=== PATIENT | male | born 1960 | race Caucasian/White ===

== ENCOUNTER 2017-05-16 13:02 | Emergency (ER) | payer OTHER ==
--- NOTE | 2017-05-16 14:58 | RAD ---
INDICATION: Productive cough and shortness of breath for 2 weeks. Recent treatment for leukemia. COMPARISON: No relevant prior exams available on the [facility] PACS for comparison. TECHNIQUE: Dual energy PA and routine lateral views of the chest were obtained. REPORT: Bilateral nipple shadows noted on the PA view with corresponding finding on the lateral view without concern. No focal pulmonary lesion, compelling alveolar consolidation, pleural effusion, pneumothorax. The heart, pulmonary vasculature, and mediastinal contours are unremarkable. No suspicious osseous lesions evident. IMPRESSION: No evidence for pneumonia. No evidence for acute intrathoracic disease.
[2017-05-16 15:36] VITALS: BP 135/85
--- NOTE | 2017-05-16 15:39 | ED ---
Throat Pain/Nasal Congestion - HPI Summary HPI Summary: 56 yr old male with complaint of coughing for over a week, sinus pressure in the maxillary sinus area, post nasal drip, mild vertigo at times associated with sinus pressure and position change. He was sent by his oncologist in [place] for chest xray and influenza. The patient denies headache, neck stiffness. Denies change in vision, speech, hearing, swallowing, focal weakness , numbness, gait. The patient has not had fever. The patient has a history of leukemia and is in remission. He has not had radiation or chemo for over 6 months. - History of Current Complaint Chief Complaint: UCRespiratory Time Seen by Provider: 05/16/17 14:14 - Allergies/Home Medications Allergies/Adverse Reactions: Allergies Allergy/AdvReac Type Severity Reaction Status Date / Time Penicillins Allergy Rash Verified 05/16/17 13:53 Home Medications: Home Medications Acyclovir* [Zovirax 200 MG CAP*] 200 mg PO BID 05/16/17 [History Confirmed 05/16] Fluconazole [Fluconazole 200 mg tab] 200 mg PO BID 05/16/17 [History Confirmed 05/16/17] Gabapentin CAP(*) [Neurontin 300 CAP(*)] 300 mg PO TID 05/16/17 [History Confirmed 05/16/17] Insulin Aspart [Novolog Flexpen] 10 unit SC TID 05/16/17 [History Confirmed ] Metoprolol Tartrate TAB* [Lopressor TAB*] 200 mg PO DAILY 05/16/17 [History Confirmed 05/16/17] Ursodiol CAP* [Actigall CAP 300 MG*] 300 mg PO BID 05/16/17 [History Confirmed 05/16/17] amLODIPine TAB* [Norvasc 5 mg TAB*] 5 mg PO DAILY 05/16/17 [History Confirmed ] hydrALAZINE TAB* [Apresoline TAB*] 100 mg PO TID 05/16/17 [History Confirmed ] PMH/Surg Hx/FS Hx/Imm Hx Endocrine/Hematology History: Reports: Hx Diabetes - Cancer History Cancer Type, Location and Year: leukemia - Surgical History Surgery Procedure, Year, and Place: resection large intestine. gallbladder removal Infectious Disease History: No Infectious Disease History: Denies: Traveled Outside the [place] in Last 30 Days - Family History Known Family History: Positive: None - Social History Alcohol Use: None Substance Use Type: Reports: None Smoking Status (MU): Never Smoked Tobacco Review of Systems Negative: Fever, Chills Negative: Photophobia, Blurred Vision, Diplopia Positive: Sore Throat, Nasal Discharge, Other - sinus pressure Negative: Palpitations, Chest Pain Positive: Cough Negative: Vomiting, Diarrhea Negative: Headache, Weakness, Paresthesia, Numbness, Syncope, Slurred Speech All Other Systems Reviewed And Are Negative: Yes Physical Exam Triage Information Reviewed: Yes Vital Signs On Initial Exam: Initial Vitals Temp Pulse Resp BP Pulse Ox 98.7 F 71 18 129/77 98 05/16/17 13:48 05/16/17 13:48 05/16/17 13:48 05/16/17 13:48 05/16/17 13:48 Vital Signs Reviewed: Yes Appearance: Positive: Well-Appearing, No Pain Distress Skin: Positive: Warm, Skin Color Reflects Adequate Perfusion Head/Face: Positive: Normal Head/Face Inspection Eyes: Positive: EOMI, MALORIE ENT: Positive: Pharynx normal, Nasal congestion, TMs normal, Sinus tenderness - bilateral maxillary sinus Neck: Positive: Supple, Nontender Respiratory/Lung Sounds: Positive: Clear to Auscultation, Breath Sounds Present Cardiovascular: Positive: RRR. Negative: Murmur Abdomen Description: Positive: Nontender Musculoskeletal: Positive: Strength/ROM Intact Neurological: Positive: Sensory/Motor Intact, Alert, Oriented to Person Place, Time, CN Intact II-III, Normal Gait, Speech Normal - Whitney Coma Scale Best Eye Response: 4 - Spontaneous Best Motor Response: 6 - Obeys Commands Best Verbal Response: 5 - Oriented Diagnostics - Vital Signs Vital Signs Temp Pulse Resp BP Pulse Ox 05/16/17 13:48 98.7 F 71 18 129/77 98 - Laboratory Lab Results: Lab Results 05/16/17 05/16/17 Range/Units 14:16 14:46 POC Glucose (mg/dL) 128 H (70-100) mg/dL Influenza A (Rapid) Negative (Negative) Influenza B (Rapid) Negative (Negative) Lab Statement: Any lab studies that have been ordered have been reviewed, and results considered in the medical decision making process. EENT Course/Dx - Course Course Of Treatment: 56 yr old male with sinusitis, neg chest xray and neg rapid flu. Rx with Levaquin. - Diagnoses Provider Diagnoses: Sinusitis Discharge - Discharge Plan Condition: Good Disposition: HOME Prescriptions: Levofloxacin TAB* [Levaquin TAB*] 500 mg PO DAILY #10 tab Patient Education Materials: Sinusitis (ED) Referrals: Tito Peterson MD [Primary Care Provider] - 2 Days
--- OUTSIDE RECORDS SUMMARY | 2017-05-19 09:17 | XMS REPORT ---
:1960 External Reference #:[id number] Author Organization [facility], [facility] Address [address] [place] [address] Phone [phone] Care Team Providers Name Role Phone Tito Ortega MD Primary Care Physician Unavailable Payers Type Date Identification Numbers Payment Provider Subscriber Commercial Policy Number: [id number] [facility] Tito Magallanes PayID: [id number] [address] [place] [address] Problems Date Description Provider Status Onset: 09/09/2013 Disorder of skin AND/OR subcutaneous tissue Active Onset: 06/22/2013 Pain in limb Active Onset: 06/08/2013 Achilles bursitis Active Onset: 06/08/2013 Adjustment disorder with depressed mood Active Onset: 02/25/2013 Screening for malignant neoplasm of colon Active Onset: 10/27/2012 Acute otitis externa Active Onset: 10/15/2012 Eruption Active Onset: 06/25/2012 Chronic kidney disease stage 2 Active Onset: 06/25/2012 Herpes zoster without complication Active Onset: 01/09/2012 Malaise and fatigue Active Onset: 10/01/2011 Intestinal obstruction Active Onset: Benign prostatic hypertrophy without outflow Active obstruction Onset: Benign essential hypertension Active Onset: Pure hyperglyceridemia Active Onset: Idiopathic peripheral neuropathy Active Onset: Sarcoidosis Active Onset: 06/19/2016 Immunoproliferative neoplasm Active Onset: 02/28/2016 Lipoma of skin Active Onset: 08/09/2015 Adult health examination Active Social History Description No Information Available Allergies, Adverse Reactions, Alerts Date Description Reaction Status Severity Comments 04/05/2010 Penicillins active Medications Medication Date Status Form Strength Qnty SIG Indications Ordering Provider Metoprolol 02/27/ Active Tablets 200mg Dispense Unknown Tartrate 2016 180 Take 1 tablet orally bid Refills: 3 Gabapentin 02/26/ Active Capsules 300mg 90caps Take 1 Shannon 2015 capsule Tito, (hard, MD soft, etc.) orally tid Bactrim DS 02/27/ Hx Tablets 800-160mg Dispense 14 Unknown 2016 - Take 1 04/23/ tablet 2017 orally bid Refills: 0 Wellbutrin XL 08/03/ Hx Tablets ER 150mg Take 1 Unknown 2013 - 24HR tablet, 02/27/ extended 2016 release 24 HR orally daily Refills: 0 Lexapro 06/08/ Hx Tablets 10mg Take 1 Unknown 2013 - tablet 02/27/ orally 2015 every day Refills: 0 Voltaren 06/08/ Hx Gel 1% Apply 4g Unknown 2013 - gel (gram) 02/27/ topically 4 2016 times a day Refills: 0 Cortisporin 10/27/ Hx Solution [id number]- Take 4 Unknown 2012 - 1 drops otic 06/08/ qid 5 2013 daysRefills : 0 Amlodipine 10/15/ Hx Tablets 10mg Take 1 Unknown Besylate 2012 - tablet 02/27/ orally 2015 every day Refills: 0 Gabapentin 10/29/ Hx Capsules 300mg Take 1 Unknown 2011 - capsule 08/08/ (hard, 2015 soft, etc.) orally three times a day Refills: 0 Metoprolol 08/21/ Hx Tablets 100mg Take 1 Unknown Tartrate 2011 - tablet 02/27/ orally 2015 twice a day Refills: 0 Metoprolol 08/07/ Hx Tablets 25mg Take 3 Unknown Tartrate 2011 - tablet 08/21/ orally 2011 Every 12 hours Refills: 0 Fenofibrate 03/19/ Hx Tablets 160mg 90tabs Take 1 Shannon 2010 - tablet Tito 04/23/ orally 2016 every day Zithromax 09/19/ Hx Tablets 250mg Take 1 Unknown Z-Rashid 2010 - tablet 08/07/ orally as 2012 directed Refills: 0 Fish Oil 04/05/ Hx Capsules 1000mg 1 by mouth Shannon 2009 - every day Tito 04/23/ 2016 Lyrica 02/12/ Hx Capsules 75mg Take 1 Unknown 2009 - capsule 08/07/ (hard, 2011 soft, etc.) orally twice a day Refills: 0 Cialis 05/10/ Hx Tablets 10mg 6tabs take 1 Shannon 2009 - tablet Tito, orally 2016 qd/prn Toprol XL 05/10/ Hx Tablets ER 50mg Take 1 Unknown 2009 - 24HR tablet orally 2011 Every day Refills: 0 Lisinopril-Hy 05/10/ Hx Tablets 20-12.5mg Take 1 Unknown drochlorothia 2009 - tablet zide orally 2011 Every day Refills: 0 Prilosec 05/10/ Hx Capsules 20mg Take 1 Unknown 2009 - DR capsule,del 08/03/ ayed 2014 release (enteric coated) orally Every day Refills: 0 Tricor 05/10/ Hx Tablets 145mg Take 1 Unknown 2009 - tablet 03/19/ orally 2010 Every day Refills: 0 Lovaza 05/10/ Hx Capsules 1gm Take 1 Unknown 2009 - capsule 08/07/ (hard, 2011 soft, etc.) orally qid Refills: 0 Lisinopril 0000/ Hx Tablets 20mg 90tabs Take 1 Shannon, - tablet Tito, orally 2016 Every day Vital Signs Date Vital Result Comment 04/23/2017 Height 73 inches 6'1" Weight 259.00 lb BMI (Body Mass Index) 34.2 kg/m2 BP Systolic 130 mmHg BP Diastolic 90 mmHg Heart Rate 54 /min Body Temperature 97.6 F 06/19/2016 Height 73 inches Weight 288.12 lb BMI (Body Mass Index) 38.0094 kg/m2 BP Systolic 138 mmHg BP Diastolic 76 mmHg Heart Rate 78 /min Body Temperature 97.3 F Respiratory Rate 20 /min 02/28/2016 Height 73 inches Weight 294.25 lb BMI (Body Mass Index) 38.8174 kg/m2 BP Systolic 180 mmHg BP Diastolic 100 mmHg Heart Rate 80 /min Body Temperature 98.3 F 01/09/2016 Height 73 inches Weight 294.50 lb BMI (Body Mass Index) 38.8503 kg/m2 BP Systolic 162 mmHg BP Diastolic 104 mmHg Heart Rate 98 /min Body Temperature 97.6 F 08/09/2015 Height 73 inches Weight 276.06 lb BMI (Body Mass Index) 36.4181 kg/m2 BP Systolic 168 mmHg BP Diastolic 105 mmHg Heart Rate 74 /min Body Temperature 98.1 F 08/03/2013 Height 73 inches Weight 266.19 lb BMI (Body Mass Index) 35.117 kg/m2 BP Systolic 132 mmHg BP Diastolic 82 mmHg Heart Rate 64 /min Body Temperature 97.8 F 06/22/2013 Height 73 inches Weight 272.06 lb BMI (Body Mass Index) 35.8888 kg/m2 BP Systolic 136 mmHg BP Diastolic 80 mmHg Heart Rate 84 /min Body Temperature 97.6 F 06/08/2013 Height 73 inches Weight 284.00 lb BMI (Body Mass Index) 37.4652 kg/m2 BP Systolic 126 mmHg BP Diastolic 90 mmHg Heart Rate 84 /min Body Temperature 97.8 F 02/24/2013 Height 73 inches Weight 300.00 lb BMI (Body Mass Index) 39.5759 kg/m2 BP Systolic 148 mmHg BP Diastolic 86 mmHg Heart Rate 80 /min Body Temperature 97.6 F 10/27/2012 Height 73 inches Weight 284.00 lb BMI (Body Mass Index) 37.4652 kg/m2 BP Systolic 152 mmHg BP Diastolic 86 mmHg Heart Rate 64 /min Body Temperature 97.5 F 10/15/2012 Height 73 inches Weight 302.00 lb BMI (Body Mass Index) 39.8397 kg/m2 BP Systolic 162 mmHg BP Diastolic 100 mmHg Heart Rate 84 /min Body Temperature 98.1 F 06/25/2012 Height 74 inches Weight 289.00 lb BMI (Body Mass Index) 37.1014 kg/m2 BP Systolic 190 mmHg BP Diastolic 110 mmHg Heart Rate 72 /min Body Temperature 97.6 F 01/09/2012 Weight 285.00 lb BP Systolic 132 mmHg BP Diastolic 78 mmHg Heart Rate 74 /min Body Temperature 98.4 F 10/30/2011 Height 74 inches Weight 283.00 lb BMI (Body Mass Index) 36.3311 kg/m2 BP Systolic 132 mmHg BP Diastolic 90 mmHg Heart Rate 74 /min Body Temperature 97.7 F 08/22/2011 Height 73.5 inches Weight 286.00 lb BMI (Body Mass Index) 37.2175 kg/m2 BP Systolic 168 mmHg BP Diastolic 104 mmHg Heart Rate 72 /min Body Temperature 97.4 F 08/08/2011 Height 73.5 inches Weight 291.00 lb BMI (Body Mass Index) 37.8681 kg/m2 BP Systolic 200 mmHg BP Diastolic 150 mmHg Heart Rate 72 /min Body Temperature 97.8 F 04/09/2010 Height 73 inches Weight 275.00 lb BMI (Body Mass Index) 36.2819 kg/m2 Results Test Date Test Result H/L Range Note Venipuncture 03/06/2016 Venipuncture Done Venipuncture Done Urine w/micro 03/06/2016 [place] 0 [place] 0 RBC 3.49 RBC 3.49 WBC 3.9 WBC 3.9 B12 03/06/2016 B12 293 B12 293 CBC 03/06/2016 % Maribeth 35.5 % Maribeth 35.5 %Baso 0.5 %Baso 0.5 %Eos 0.6 %Eos 0.6 %Lym 62.5 %Lym 62.5 %[place] 0.9 %[place] 0.9 Atyp Lymph 8 Atyp Lymph 8 Band 0 Band 0 Baso 0 Baso 0 Basophils 1 Basophils 1 Eos 0 Eos 0 Eosinophils 0 Eosinophils 0 HCT 34.3 HCT 34.3 HGB 11.7 HGB 11.7 Lymp 2.5 Lymp 2.5 Lymph 48 Lymph 48 MCH 33.5 MCH 33.5 MCHC 34.1 MCHC 34.1 MCV 98.1 MCV 98.1 MPV 7.4 MPV 7.4 Monos 2 Monos 2 Neut 1.4 Neut 1.4 PLT 152 PLT 152 RDW 17.3 RDW 17.3 Segs 41 Segs 41 Ferritin 03/06/2016 Ferritin 569 Ferritin 569 Iron 03/06/2016 Iron 203 Iron 203 Folate 03/06/2016 Folate 26.93 Folate 26.93 CBC 02/28/2016 % Maribeth 39.2 %Baso 0.5 %Eos 0.6 %Lym 58.9 %[place] 0.8 Atyp Lymph 4 Band 6 Baso 0 Basophils 0 Eos 0 Eosinophils 1 HCT 33.3 HGB 11.5 Lymp 2.4 Lymph 46 MCH 33.5 MCHC 34.5 MCV 96.8 MPV 7.3 Monos 5 Neut 1.6 PLT 153 RDW 16.7 Segs 38 Westergren Sed Rt. 02/28/2016 Westergren Sed Rt. 23 Venipuncture 02/28/2016 Venipuncture Done CRP 02/28/2016 CRP <0.5 Hepatic Function Panel 02/28/2016 A/G Ratio 1.7 Albumin 4.1 Alk. Phos. 106 Alt 23 Ast 28 Globulin 2.4 Total Bilirubin 0.7 Total Protein 6.5 Lipid Panel 02/28/2016 eGFR-Aa male 47 eGFR-male 39 Urine w/micro 02/28/2016 [place] 0 RBC 3.43 WBC 4.2 Pathologist Review 02/28/2016 Pathologist Review See comment Metabolic Panel 02/28/2016 Anion Gap 7 Bun 28 Calcium 9.2 Chloride 105 Co2 30 Creatinine 1.8 Glucose 165 Potassium 3.8 Sodium 142 Venipuncture 08/09/2015 Venipuncture Done Urine w/micro 08/09/2015 [place] 0.1 RBC 5.22 WBC 6 Test Cancelled 08/09/2015 Test Cancelled Cancelled PSA 08/09/2015 Psa 5.2 Metabolic Panel 08/09/2015 Anion Gap 8 Bun 20 Calcium 9.6 Chloride 105 Co2 28 Creatinine 1.4 Glucose 95 Potassium 3.6 Sodium 141 Lipid Panel 08/09/2015 Cardiac Risk 11.6 Cholesterol 290 Hdl 25 LDL-Direct 29 Triglycerides 669 VLDL 134 eGFR-Aa male 63 eGFR-male 52 Hepatic Function Panel 08/09/2015 A/G Ratio 1.4 Albumin 4.1 Alk. Phos. 126 Alt 35 Ast 35 Direct Bilirubin 0.3 Globulin 2.9 Total Bilirubin 1.5 Total Protein 7 GGT 08/09/2015 GGT 34 Chiv 08/09/2015 Chiv Nonreactive CBC 08/09/2015 % Maribeth 63.7 %Baso 0.3 %Eos 1.9 %Lym 31.7 %[place] 2.3 Baso 0 Eos 0.1 HCT 45.3 HGB 15.5 Lymp 1.9 MCH 29.7 MCHC 34.2 MCV 86.8 MPV 6.8 Neut 3.8 PLT 198 RDW 14.7 Hepatic Function Panel 08/03/2013 Alb 3.5 Alp 136 Ast 34 Dbi 0.2 TP 6.4 Tbil 0.6 Lipid Panel 08/03/2013 Alti 44 Chol 112 HDL Risk 5 Hdl 24 LDLC 23 TGL 323 Metabolic Panel 08/03/2013 Agap 5 BUN/CR 15 Bun 24 CA 8.7 CL 105 Co2 30 Crea 1.6 Gluc 92 K 4.4 NA 140 Hepatic Function Panel 06/08/2013 Alb 4.1 Alp 130 Alt 90 Ast 59 TP 7 Tbil 1.4 Lipid Panel 06/08/2013 Chol 110 HDL Risk 4 Hdl 29 LDLC 29 TGL 258 Metabolic Panel 06/08/2013 Agap 13 BUN/CR 13.5 Bun 23 CA 9.2 CL 101 Co2 26 Crea 1.7 Gluc 92 K 3.5 NA 140 Urine W/micro 03/11/2013 Glu Normal PH 6 SP GR 1.015 Urine w/micro 03/11/2013 BLD 1+ Bacteria 1+ Bili Negative Ket Negative Mei Negative Mucus 1+ Nit Negative Pro Negative RBC 5-10 Uro Normal WBC 0-2 Procedures Description No Information Plan of Care 04/23/2017 - Tito Ortega MDZ00.00 Encntr for general adult medical exam w/o abnormal [id number] 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
== END 2017-05-16 15:48 | disposition home or self-care (01) ==
LOC: UCCORT 13:02
DX: J32.9 Chronic sinusitis, unspecified (principal); R05 Cough; R06.02 Shortness of breath; E11.9 Type 2 diabetes mellitus without complications; Z79.4 Long term (current) use of insulin; C95.91 Leukemia, unspecified, in remission
CPT/HCPCS: 71020; 87502; 99212; G0463